=== PATIENT | female | born 1945 | race Two or more races ===

== ENCOUNTER 2020-12-22 03:48 | Inpatient (IN) | payer OTHER ==
[~2020-12-22] VITALS: Ht 160 cm; Wt 68.0 kg
--- NOTE | 2020-12-22 03:59 | NUR ---
SE RECIBE PTE ALERTA Y ORIENTADA POR RHINA, EN AMBULANCIA. PTE LLEGA CANALIZADA EN MANO IZQUIERDA CON ANGIO#20 Y UN .09NSS DE 20ML FULL DRIP COLOCADO POR PERSONAL PARAMEDICO. PTE REFIERE PRESENTAR DOLOR EPIGASTRICO, VOMITOS X2 Y DIARREAS X6 DESDE STEPHEN EN LA MANANA.
--- NOTE | 2020-12-22 04:13 | NUR ---
PACIENTE ALERTA Y ORIENTADA X3. [place] ORIENTA A PACIENTE SOBRE TX Y PROCEDIMIENTO A REALIZAR Y REFIRIO ENTENDER. ADMINISTRO MEDICAMENTO ORDENADO POR . REALIZO MUESTRAS DE EWELINA BAJO MEDIDAS ASEPTICAS Y CANALIZACION PATENTE Y WAGNER DE EDEMA Y ERITEMA. PENDIENTE MUESTRAS DE U/A, U/C Y FECAL. SE MANTIENE BAJO OBSERVACION POR CAMBIOS SIGNIFICATIVOS.
--- NOTE | 2020-12-22 05:24 | NUR ---
PACIENTE ALERTA Y ORIENTADA X3. SE IRIENTA SOBRE TX A RECIBIR Y REFIRIO ENTENDER. [place] ADMINISTRA MEDICAMENTOS ORDENADOS POR . PENDIENTE GASES ARTERIALES NOTIFICADOS A MIS. [place] PERSONAL DE TERAPIA RESPIRATORIA.
--- NOTE | 2020-12-22 05:29 | NUR ---
SE NOTIFICO A PERSONAL DE SONOGRAFIA ESTUDIO DE SONOGRAMA ABDOMINAL.
[2020-12-22] MEDS ORDERED: FORTAMET500 MG (06:18)
[2020-12-22] MEDS ORDERED: COZAAR50 MG (06:18)
[2020-12-22] MEDS ORDERED: TOPROL XL50 M1 (06:18)
[2020-12-22] MEDS ORDERED: CHILDREN'S ASPI81 MG (06:18)
--- NOTE | 2020-12-22 07:57 | NUR ---
SE RECIBE PTE DEL TURNO ANTERIOR EN DENNIS CON BARANDAS ELEVADAS Y NIVEL MAS BAJO POR PRECAUCION, MARQUEZ DE IDENTIFICACION. PTE ALERTA Y ORIENTADA X3, PRESENTA BUEN PATRON RESPIRATORIO Y PIEL TIBIA AL TACTO CON AREA DE VENOPUNCION PATENTE Y WAGNER DE EDEMA Y/O ENROJECIMIENTO RECIBIENDO 0.9% NSS AT 80 ML/HR. PTE CON ORDEN DE NPO, PENDIENTE SONOGRAMA ABDOMINAL. PENDIENTE RESULTADOS DE LABORATORIO.
[2020-12-24] MEDS ORDERED: GLYBURIDE1.25 MG (11:05)
[2020-12-24] MEDS ORDERED: LOSARTAN-HCTZ1 EACH (11:05)
[2020-12-24] MEDS ORDERED: ATORVASTATIN CA40 MG (11:06)
[2020-12-24] MEDS ORDERED: CARVEDILOL6.25 M1 (11:06)
[2020-12-24] MEDS ORDERED: FAMOTIDINE20 MG (11:06)
[2020-12-24] MEDS ORDERED: BRILINTA90 MG (11:06)
== END 2020-12-29 14:47 | disposition home or self-care (01) | DRG 683 ==
LOC: ER 03:48 → MEDI 14:22
PROVIDERS: ADMIT Specialist; ATTEND Specialist
PROC: 8E0ZXY6 Isolation (ICD-10-PCS; principal; 2020-12-22)
PROC: B24BZZZ Ultrasonography of Heart with Aorta (ICD-10-PCS; 2020-12-22)
PROC: BT43ZZZ Ultrasonography of Bilateral Kidneys (ICD-10-PCS; 2020-12-22)
PROC: 4A12X4Z Monitoring of Cardiac Electrical Activity, External Approach (ICD-10-PCS; 2020-12-23)
PROC: BW40ZZZ Ultrasonography of Abdomen (ICD-10-PCS; 2020-12-24)
DX: N17.8 Other acute kidney failure (principal); E87.1 Hypo-osmolality and hyponatremia; N39.0 Urinary tract infection, site not specified; J44.9 Chronic obstructive pulmonary disease, unspecified; I10 Essential (primary) hypertension; I25.10 Atherosclerotic heart disease of native coronary artery without angina pectoris; Z95.5 Presence of coronary angioplasty implant and graft; E86.0 Dehydration; Z20.822 Contact with and (suspected) exposure to COVID-19; E87.5 Hyperkalemia; K29.00 Acute gastritis without bleeding; E11.65 Type 2 diabetes mellitus with hyperglycemia; D64.9 Anemia, unspecified; Z79.84 Long term (current) use of oral hypoglycemic drugs; T50.8X5A Adverse effect of diagnostic agents, initial encounter; B95.4 Other streptococcus as the cause of diseases classified elsewhere

== ENCOUNTER 2021-01-07 10:31 | Outpatient (CLI) | payer OTHER ==
[~2021-01-07 10:31] MED LIST: ATORVASTATIN CA40 MG; BRILINTA90 MG; CARVEDILOL6.25 M1; CHILDREN'S ASPI81 MG; COZAAR50 MG; FAMOTIDINE20 MG; FORTAMET500 MG; GLYBURIDE1.25 MG; LOSARTAN-HCTZ1 EACH; TOPROL XL50 M1
== END 2021-01-07 11:16 | disposition home or self-care (01) ==
LOC: NUCLEAR 10:31
PROVIDERS: ATTEND Specialist
DX: I82 Other venous embolism and thrombosis (principal)

== ENCOUNTER → 2021-03-20 | Outpatient (CLI) | payer OTHER | END | disposition home or self-care (01) | LOC: NUCLEAR 10:00 | PROVIDERS: ATTEND Specialist | DX: I82.622 Acute embolism and thrombosis of deep veins of left upper extremity (principal) ==

== ENCOUNTER → 2025-10-04 | Outpatient (CLI) | payer OTHER | END | disposition home or self-care (01) | LOC: RAD 11:21 | DX: M89.721 Major osseous defect, right humerus (principal); M79.621 Pain in right upper arm ==